=== PATIENT | female | born 1990 | race Caucasian/White ===

== ENCOUNTER 2016-08-18 20:32 | Emergency (ER) | payer OTHER ==
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
[~2016-08-18 20:32] MED LIST: AMBIEN PO; AMITRYPTYLINE PO; AUGMENTIN PO; CLARITIN10 MG PO; FLONASE16 GM; GABAPENTIN300 MG PO; HEADACHE MED; KEFLEX; NAPROSYN250 M1 PO; REQUIP0.5 MG; VENLAFAXINE HCL75 MG PO; VIT D; VYVANSE50 MG PO; XANAX XR0.5 MG; [UNRECOGNIZED DRUG - REMARK] PO
[2016-08-21] MEDS ORDERED: INDERAL PO (13:41)
== END 2016-08-18 22:06 | disposition home or self-care (01) ==
LOC: SED 20:32
DX: R51 Headache (principal); F41.9 Anxiety disorder, unspecified; F32.9 Major depressive disorder, single episode, unspecified
CPT/HCPCS: 70450; 99284

== ENCOUNTER 2016-08-21 13:58 | Emergency (ER) | payer OTHER ==
[~2016-08-21 13:58] MED LIST changes: +INDERAL PO
[2016-08-21 14:32] LABS: INFLUENZA A NEG (NEG); INFLUENZA B NEG (NEG)
== END 2016-08-21 15:27 | disposition home or self-care (01) ==
LOC: SED 13:58
PROVIDERS: Nurse Practitioner
DX: J02.9 Acute pharyngitis, unspecified (principal); Z20.2 Contact with and (suspected) exposure to infections with a predominantly sexual mode of transmission; F41.8 Other specified anxiety disorders; F90.9 Attention-deficit hyperactivity disorder, unspecified type; Z79.899 Other long term (current) drug therapy
CPT/HCPCS: 87651; 87804; 96372; 99283; J0696